=== PATIENT | male | born 1985 | race Caucasian/White ===

== ENCOUNTER 2016-12-05 10:33 | Emergency (ER) | payer OTHER ==
[~2016-12-05] VITALS: Ht 170.2 cm; Wt 83.7 kg
[~2016-12-05 10:33] MED LIST: METHADONE10 MG PO; PREDNISONE20 MG PO; VENTOLIN HFA18 GM IH
[2016-12-05 10:38] VITALS: BP 169/86
[2016-12-05] MEDS ORDERED: PEN-VEE K,VEET500 MG PO (12:42)
[2016-12-05] MEDS ORDERED: MOTRIN800 MG PO (12:42)
== END 2016-12-05 13:02 | disposition home or self-care (01) ==
LOC: EME 10:33
DX: R68.84 Jaw pain (principal); K02.9 Dental caries, unspecified; H53.149 Visual discomfort, unspecified; F17.200 Nicotine dependence, unspecified, uncomplicated
CPT/HCPCS: 70110; 99281; 99283; J1885

== ENCOUNTER 2017-03-10 08:11 | Emergency (ER) | payer OTHER ==
[~2017-03-10] VITALS: Ht 170.2 cm; Wt 83.6 kg
[~2017-03-10 08:11] MED LIST changes: +MOTRIN800 MG PO; +PEN-VEE K,VEET500 MG PO
[2017-03-10] MEDS ORDERED: PEN-VEE K,VEET500 MG PO (09:40)
[2017-03-10] MEDS ORDERED: ULTRAM50 MG PO (09:40)
[2017-03-10] MEDS ORDERED: NAPROXEN500 MG PO (09:41)
[2017-03-10 09:52] VITALS: BP 145/94
== END 2017-03-10 09:52 | disposition home or self-care (01) ==
LOC: EME 08:11
DX: K04.7 Periapical abscess without sinus (principal); K02.9 Dental caries, unspecified; H92.01 Otalgia, right ear
CPT/HCPCS: 99281; 99283

== ENCOUNTER 2017-09-17 07:02 | Inpatient (IN) | payer OTHER ==
[~2017-09-17] VITALS: Ht 152.4 cm; Wt 70.3 kg
[2017-09-17] VITALS (17 sets, daily range): BP systolic 67–140; BP diastolic 41–113
[~2017-09-17 07:02] MED LIST changes: +NAPROXEN500 MG PO; +ULTRAM50 MG PO
[2017-09-17 07:34] LABS: BASOPHIL (%) 0.4 % (0-1); EOSINOPHIL (%) 0.9 % (0-5); EOSINOPHIL COUNT 0.1 K/uL (0-0.3); HEMATOCRIT 43.3 % (38.0-50.0); HEMOGLOBIN 14.5 G/DL (12.5-16.6); IMMATURE GRANULOCYTE (%) 0.4 % (0.0-0.7); LYMPHOCYTE (%) 4.2 % (15-42); LYMPHOCYTE COUNT 0.2 K/uL (1.0-2.8); MCH 28.3 PG (29.0-34.0); MCHC 33.5 G/DL (30.0-36.0); MCV 84.6 FL (86-99); MONOCYTE (%) 0.4 % (3-12); NEUTROPHIL (%) 93.7 % (45-76); PLATELET COUNT 159 K/uL (156-360); RBC DIS.WIDTH-CV 12.1 % (11.8-14.6); RBC DIS.WIDTH-SD 37.2 % (39-53); RED BLOOD COUNT 5.12 M/uL (4.00-5.50); WHITE BLOOD COUNT 5.3 K/uL (4.1-10.2)
[2017-09-17 08:13] LABS: ALKALINE PHOSPHATASE 117 IU/L (3-129); ALT (GPT) 57 IU/L (3-49); AST (GOT) 162 IU/L (2-34); CHLORIDE 110 MEQ/L (99-109); CREATININE 1.7 MG/DL (0.6-1.3); GFR ESTIMATE (CALCULATED) 51 mL/min/ (58.99-99999); GLUCOSE 105 mg/dL (70-99); POTASSIUM 3.6 MEQ/L (3.7-5.4); SODIUM 144 MEQ/L (136-147); TOTAL BILIRUBIN 0.9 MG/DL (0.0-1.0); TOTAL PROTEIN 6.8 G/DL (6.4-8.3); UREA NITROGEN (BUN) 16 mg/dL (9-23)
[2017-09-17 10:59] LABS: SERUM ETHYL ALCOHOL < 10 mg/dL
[2017-09-17 11:55] LABS: COMMENTS - BLOOD GASES A+C+; DEVICE NC; O2 FLOW 4 L/MIN; SITE LR
[2017-09-17 11:58] LABS: PCO2 40 mm Hg (35-45); PO2 37 mm Hg (80-100); pH 7.35 (7.35-7.45)
[2017-09-17 11:59] LABS: BASE EXCESS -3.3 mEq/L (-3 to +3); BICARBONATE 22.1 mEq/L (22-26); CARBOXY HGB 1.6 % (0-5)
[2017-09-17 12:05] LABS: APPEARANCE CLEAR ((CLEAR)); BILIRUBIN NEGATIVE; BLOOD NEGATIVE; COLOR YELLOW ((YELLOW)); GLUCOSE (STRIP) NEGATIVE; KETONES 5; LEUKOCYTES NEGATIVE; NITRITE NEGATIVE; PROTEIN (STRIP) 30; SPECIFIC GRAVITY 1.016 (1.000-1.030)
[2017-09-17 12:13] LABS: COCAINE PRESUMPTIVE POSITIVE (150 ng/mL); PHENCYCLIDINE NEGATIVE (25 ng/mL); THC CANNABINOIDS NEGATIVE (50 ng/mL)
[2017-09-17 12:14] LABS: AMPHETAMINE NEGATIVE (500 ng/mL); BARBITURATES NEGATIVE (200 ng/mL); BENZODIAZEPINES PRESUMPTIVE POSITIVE (150 ng/mL); BUPRENORPHINE NEGATIVE (10 ng/mL); METHADONE NEGATIVE (200 ng/mL); METHAMPHETAMINE NEGATIVE (500 ng/mL); OPIATES (MORPHINE) PRESUMPTIVE POSITIVE (100 ng/mL); OXYCODONE NEGATIVE (100 ng/mL); PROPOXYPHENE NEGATIVE (300 ng/mL); TRICYCLIC ANTIDEPRESSANTS NEGATIVE (300 ng/mL)
[2017-09-17 12:40] LABS: COMMENTS - BLOOD GASES A+C+; DEVICE 840; FI02 40 %; MECHANICAL RATE 12 resp/min; MODE A/C; PEEP 8 CM/H20; SITE LR; TIDAL VOLUME 600 ML; TOTAL RESP RATE 12 resp/min
[2017-09-17 12:41] LABS: BASE EXCESS -4.5 mEq/L (-3 to +3); BICARBONATE 22.1 mEq/L (22-26); CARBOXY HGB 1.7 % (0-5); METHEMOGLOBIN 0.8 % (0-1.5); PCO2 46 mm Hg (35-45); PO2 72 mm Hg (80-100); pH 7.29 (7.35-7.45)
[2017-09-17 12:45] LABS: BENZODIAZEPINES, URINE SCREEN POSITIVE (200 ng/mL)
[2017-09-17 17:25] LABS: COMMENTS - BLOOD GASES C+; DEVICE 840; FI02 60 %; MECHANICAL RATE 10 resp/min; MODE A/C; PCO2 40 mm Hg (35-45); PEEP 5 CM/H20; PO2 129 mm Hg (80-100); SITE ALINE; TIDAL VOLUME 600 ML; TOTAL RESP RATE 10 resp/min
[2017-09-17 17:26] LABS: BICARBONATE 18.4 mEq/L (22-26); CARBOXY HGB 1.4 % (0-5); METHEMOGLOBIN 0.9 % (0-1.5); pH 7.27 (7.35-7.45)
[2017-09-17 18:29] LABS: PLATELET COUNT 164 K/uL (156-360)
[2017-09-17 18:40] LABS: INTER. NORMALIZED RATIO 1.3
[2017-09-17 18:43] LABS: PTT 28.1 SEC (25-37)
[2017-09-17 18:51] LABS: CHLORIDE 120 MEQ/L (99-109); CREATININE 1.3 MG/DL (0.6-1.3); GFR ESTIMATE (CALCULATED) > 59 mL/min/ (58.99-99999); GLUCOSE 128 mg/dL (70-99); SODIUM 144 MEQ/L (136-147); UREA NITROGEN (BUN) 19 mg/dL (9-23)
[2017-09-17 18:52] LABS: POTASSIUM 4.4 MEQ/L (3.7-5.4)
[2017-09-17 18:54] LABS: ABS NEUTROPHIL COUNT 32.7; ATYPICAL LYMPHOCYTE 0.4 %; BAND NEUTROPHILS 29.6 % (0-8.0); EOSINOPHIL ABS CT 0.1; EOSINOPHILS 0.4 % (0-5.0); HEMATOCRIT 40.3 % (38.0-50.0); LYMPHOCYTES 1.3 % (15.0-45.0); MCH 28.3 PG (29.0-34.0); MCHC 32.3 G/DL (30.0-36.0); MCV 87.6 FL (86-99); MONOCYTES 0.9 % (0-9.0); PLAT.SUFFICIENCY ADEQUATE; POIKILOCYTOSIS 1+; RBC DIS.WIDTH-CV 12.8 % (11.8-14.6); RBC DIS.WIDTH-SD 40.9 % (39-53); SEG.NEUTROPHILS 67.4 % (46.0-76.0); WHITE BLOOD COUNT 33.7 K/uL (4.1-10.2)
[2017-09-17 23:12] LABS: SITE LR ALINE
[2017-09-17 23:13] LABS: COMMENTS - BLOOD GASES C; DEVICE VENT; FI02 60 %; MECHANICAL RATE 10 resp/min; MODE AC; O2 SATURATION (CALCULATED) 96.6 % (95-99); PCO2 40 mm Hg (35-45); PEEP 5 CM/H20; PO2 133 mm Hg (80-100); TIDAL VOLUME 600 ML; TOTAL RESP RATE 17 resp/min
[2017-09-17 23:14] LABS: BASE EXCESS -6.3 mEq/L (-3 to +3); BICARBONATE 19.7 mEq/L (22-26); CARBOXY HGB 1.4 % (0-5); METHEMOGLOBIN 1.3 % (0-1.5)
[2017-09-18] VITALS (11 sets, daily range): BP systolic 91–140; BP diastolic 53–96
[2017-09-18 05:32] LABS: PLATELET COUNT 129 K/uL (156-360)
[2017-09-18 06:26] LABS: ALBUMIN 3.1 G/DL (3.2-4.8); ALKALINE PHOSPHATASE 90 IU/L (3-129); ALT (GPT) 86 IU/L (3-49); CHLORIDE 116 MEQ/L (99-109); GFR ESTIMATE (CALCULATED) > 59 mL/min/ (58.99-99999); GLUCOSE 100 mg/dL (70-99); POTASSIUM 4.7 MEQ/L (3.7-5.4); SODIUM 146 MEQ/L (136-147); UREA NITROGEN (BUN) 24 mg/dL (9-23)
[2017-09-18 06:29] LABS: HEMATOCRIT 37.8 % (38.0-50.0); HEMOGLOBIN 12.3 G/DL (12.5-16.6); MCH 28.3 PG (29.0-34.0); MCHC 32.5 G/DL (30.0-36.0); MCV 86.9 FL (86-99); RBC DIS.WIDTH-CV 12.9 % (11.8-14.6); RBC DIS.WIDTH-SD 40.9 % (39-53); RED BLOOD COUNT 4.35 M/uL (4.00-5.50)
[2017-09-18 06:30] LABS: AST (GOT) 65 IU/L (2-34); TOTAL BILIRUBIN 0.7 MG/DL (0.0-1.0); WHITE BLOOD COUNT 35.8 K/uL (4.1-10.2)
[2017-09-18 07:15] LABS: ABS NEUTROPHIL COUNT 34.3; BAND NEUTROPHILS 18.3 % (0-8.0); EOSINOPHIL ABS CT 0; LYMPHOCYTES 1.7 % (15.0-45.0); METAMYELOCYTES 0.9 %; MONOCYTES 1.3 % (0-9.0); MYELOCYTES 0.4 %; PLAT.SUFFICIENCY DECREASED; SEG.NEUTROPHILS 77.4 % (46.0-76.0)
[2017-09-18 10:39] LABS: HIGH-SENS C-REACTIVE PROTEIN > 8.00 MG/DL (0.02-0.20)
[2017-09-18 11:31] LABS: THYROTROPIN (TSH) 0.15 MIU/L (0.4-5.5)
[2017-09-18 12:14] LABS: HEPATITIS B SURFACE ANTIGEN Nonreactive
[2017-09-18 12:15] LABS: ANTI-HEPATITIS A VIRUS (IGM) Nonreactive; HEPATITIS C ANTIBODY Nonreactive
[2017-09-18 12:16] LABS: ANTI-HEPATITIS B CORE (IGM) Nonreactive
[2017-09-18 12:17] LABS: HIV-1/2 AB/AG COMBO Nonreactive
[2017-09-19] VITALS (13 sets, daily range): BP systolic 100–129; BP diastolic 61–101
[2017-09-19 05:12] LABS: BASOPHIL (%) 0.1 % (0-1); EOSINOPHIL (%) 0.7 % (0-5); EOSINOPHIL COUNT 0.1 K/uL (0-0.3); HEMATOCRIT 33.5 % (38.0-50.0); HEMOGLOBIN 10.7 G/DL (12.5-16.6); IMMATURE GRANULOCYTE (%) 1.6 % (0.0-0.7); LYMPHOCYTE (%) 9.5 % (15-42); LYMPHOCYTE COUNT 1.5 K/uL (1.0-2.8); MCH 27.6 PG (29.0-34.0); MCHC 31.9 G/DL (30.0-36.0); MCV 86.3 FL (86-99); MONOCYTE (%) 4.9 % (3-12); MONOCYTE COUNT 0.8 K/uL (0-0.8); NEUTROPHIL (%) 83.2 % (45-76); NEUTROPHIL COUNT 13.3 K/uL (1.8-6.4); PLATELET COUNT 94 K/uL (156-360); RBC DIS.WIDTH-CV 12.9 % (11.8-14.6); RBC DIS.WIDTH-SD 40.6 % (39-53); RED BLOOD COUNT 3.88 M/uL (4.00-5.50)
[2017-09-19 06:01] LABS: PHOSPHORUS 2.5 mg/dL (2.5-4.9)
[2017-09-19 06:04] LABS: ALBUMIN 2.8 G/DL (3.2-4.8); ALKALINE PHOSPHATASE 63 IU/L (3-129); ALT (GPT) 53 IU/L (3-49); CHLORIDE 113 MEQ/L (99-109); CREATININE 0.8 MG/DL (0.6-1.3); GFR ESTIMATE (CALCULATED) > 59 mL/min/ (58.99-99999); GLUCOSE 93 mg/dL (70-99); SODIUM 146 MEQ/L (136-147); UREA NITROGEN (BUN) 15 mg/dL (9-23)
[2017-09-19 06:06] LABS: HIGH-SENS C-REACTIVE PROTEIN > 8.00 MG/DL (0.02-0.20)
[2017-09-19 06:10] LABS: AST (GOT) 24 IU/L (2-34); POTASSIUM 3.5 MEQ/L (3.7-5.4); TOTAL BILIRUBIN 0.4 MG/DL (0.0-1.0)
[2017-09-20] VITALS (14 sets, daily range): BP systolic 122–194; BP diastolic 67–130
[2017-09-20 05:16] LABS: BASOPHIL (%) 0.2 % (0-1); EOSINOPHIL (%) 0.3 % (0-5); IMMATURE GRANULOCYTE (%) 0.8 % (0.0-0.7); LYMPHOCYTE (%) 8.7 % (15-42); LYMPHOCYTE COUNT 0.9 K/uL (1.0-2.8); MCH 28.8 PG (29.0-34.0); MCHC 33.7 G/DL (30.0-36.0); MCV 85.6 FL (86-99); MONOCYTE (%) 5.3 % (3-12); MONOCYTE COUNT 0.5 K/uL (0-0.8); NEUTROPHIL (%) 84.7 % (45-76); NEUTROPHIL COUNT 8.2 K/uL (1.8-6.4); RBC DIS.WIDTH-CV 12.3 % (11.8-14.6); RBC DIS.WIDTH-SD 38.3 % (39-53); RED BLOOD COUNT 4.44 M/uL (4.00-5.50); WHITE BLOOD COUNT 9.7 K/uL (4.1-10.2)
[2017-09-20 05:33] LABS: ALBUMIN 3.2 g/dL (3.2-4.8); CHLORIDE 112 mEq/L (99-109); POTASSIUM 3.8 mEq/L (3.7-5.4); SODIUM 152 mEq/L (136-147)
[2017-09-20 05:34] LABS: MAGNESIUM 2.2 mg/dL (1.3-2.7)
[2017-09-20 05:35] LABS: GLUCOSE 107 mg/dL (70-99)
[2017-09-20 05:36] LABS: TOTAL PROTEIN 5.6 g/dL (6.4-8.3)
[2017-09-20 05:37] LABS: TOTAL BILIRUBIN 0.5 mg/dL (0.0-1.0)
[2017-09-20 05:39] LABS: ALKALINE PHOSPHATASE 72 IU/L (3-129); CREATININE 1.1 mg/dL (0.6-1.3); GFR ESTIMATE (CALCULATED) > 59 mL/min/ (58.99-99999)
[2017-09-20 05:40] LABS: UREA NITROGEN (BUN) 10 mg/dL (9-23)
[2017-09-20 05:41] LABS: AST (GOT) 46 IU/L (2-34)
[2017-09-20 05:42] LABS: ALT (GPT) 55 IU/L (3-49)
[2017-09-20 06:39] LABS: HEMOGLOBIN 12.8 G/DL (12.5-16.6)
[2017-09-20 07:16] LABS: PLAT.SUFFICIENCY DECREASED
[2017-09-20 07:30] LABS: PLATELET COUNT 60 K/uL (156-360)
[2017-09-20 23:23] LABS: COMMENTS - BLOOD GASES C+; DEVICE NRBM; O2 FLOW 15 L/MIN; SITE LR; pH 7.52 (7.35-7.45)
[2017-09-20 23:24] LABS: BASE EXCESS 7.7 mEq/L (-3 to +3); CARBOXY HGB 1.4 % (0-5); METHEMOGLOBIN 0.9 % (0-1.5); O2 SATURATION (CALCULATED) 95.6 % (95-99); PCO2 38 mm Hg (35-45); PO2 67 mm Hg (80-100)
[2017-09-21] VITALS (16 sets, daily range): BP systolic 126–176; BP diastolic 79–115
[2017-09-21 05:32] LABS: BASOPHIL (%) 0.4 % (0-1); EOSINOPHIL (%) 0.1 % (0-5); HEMATOCRIT 38.5 % (38.0-50.0); HEMOGLOBIN 12.6 G/DL (12.5-16.6); IMMATURE GRANULOCYTE (%) 1.3 % (0.0-0.7); LYMPHOCYTE (%) 8.8 % (15-42); LYMPHOCYTE COUNT 0.7 K/uL (1.0-2.8); MCH 27.5 PG (29.0-34.0); MCHC 32.7 G/DL (30.0-36.0); MCV 84.1 FL (86-99); MONOCYTE (%) 5.8 % (3-12); MONOCYTE COUNT 0.5 K/uL (0-0.8); NEUTROPHIL (%) 83.6 % (45-76); RBC DIS.WIDTH-CV 12.3 % (11.8-14.6); RBC DIS.WIDTH-SD 37.5 % (39-53); RED BLOOD COUNT 4.58 M/uL (4.00-5.50); WHITE BLOOD COUNT 8.4 K/uL (4.1-10.2)
[2017-09-21 05:36] LABS: PLATELET COUNT 99 K/uL (156-360)
[2017-09-21 06:02] LABS: ALBUMIN 3.3 G/DL (3.2-4.8); ALKALINE PHOSPHATASE 65 IU/L (3-129); ALT (GPT) 37 IU/L (3-49); AST (GOT) 29 IU/L (2-34); CHLORIDE 112 MEQ/L (99-109); CREATININE 0.9 MG/DL (0.6-1.3); GFR ESTIMATE (CALCULATED) > 59 mL/min/ (58.99-99999); GLUCOSE 89 mg/dL (70-99); MAGNESIUM 1.9 mg/dl (1.3-2.7); POTASSIUM 3.3 MEQ/L (3.7-5.4); SODIUM 153 MEQ/L (136-147); UREA NITROGEN (BUN) 8 mg/dL (9-23)
[2017-09-21 06:23] LABS: PHOSPHORUS 4.6 mg/dL (2.5-4.9); TOTAL BILIRUBIN 0.7 MG/DL (0.0-1.0)
[2017-09-21 11:20] LABS: CREATINE KINASE 118 IU/L (1-294); HIGH-SENS C-REACTIVE PROTEIN 4.72 MG/DL (0.02-0.20)
[2017-09-21 21:09] LABS: Heparin Induced Plt Ab Negative (Negative)
[2017-09-22] VITALS (15 sets, daily range): BP systolic 128–160; BP diastolic 58–96
[2017-09-22 05:02] LABS: BASOPHIL (%) 0.3 % (0-1); EOSINOPHIL (%) 0.2 % (0-5); HEMATOCRIT 35.6 % (38.0-50.0); IMMATURE GRANULOCYTE (%) 1.6 % (0.0-0.7); LYMPHOCYTE (%) 14.7 % (15-42); LYMPHOCYTE COUNT 0.9 K/uL (1.0-2.8); MCH 28.2 PG (29.0-34.0); MCHC 33.7 G/DL (30.0-36.0); MCV 83.6 FL (86-99); MONOCYTE (%) 9.8 % (3-12); MONOCYTE COUNT 0.6 K/uL (0-0.8); NEUTROPHIL (%) 73.4 % (45-76); NEUTROPHIL COUNT 4.6 K/uL (1.8-6.4); PLATELET COUNT 102 K/uL (156-360); RBC DIS.WIDTH-CV 12.4 % (11.8-14.6); RBC DIS.WIDTH-SD 37.7 % (39-53); RED BLOOD COUNT 4.26 M/uL (4.00-5.50); WHITE BLOOD COUNT 6.3 K/uL (4.1-10.2)
[2017-09-22 05:19] LABS: CHLORIDE 116 mEq/L (99-109)
[2017-09-22 05:20] LABS: ALBUMIN 3.4 g/dL (3.2-4.8); MAGNESIUM 1.9 mg/dL (1.3-2.7); POTASSIUM 3.4 mEq/L (3.7-5.4); SODIUM 149 mEq/L (136-147)
[2017-09-22 05:22] LABS: GLUCOSE 102 mg/dL (70-99); TOTAL PROTEIN 5.5 g/dL (6.4-8.3)
[2017-09-22 05:24] LABS: TOTAL BILIRUBIN 1.2 mg/dL (0.0-1.0)
[2017-09-22 05:25] LABS: PHOSPHORUS 3.6 mg/dL (2.5-4.9)
[2017-09-22 05:26] LABS: ALKALINE PHOSPHATASE 68 IU/L (3-129); CREATININE 0.8 mg/dL (0.6-1.3); GFR ESTIMATE (CALCULATED) > 59 mL/min/ (58.99-99999)
[2017-09-22 05:27] LABS: UREA NITROGEN (BUN) 9 mg/dL (9-23)
[2017-09-22 05:28] LABS: AST (GOT) 24 IU/L (2-34)
[2017-09-22 05:29] LABS: ALT (GPT) 36 IU/L (3-49)
[2017-09-22 16:41] LABS: UFH SRA Result Negative (Negative)
[2017-09-23 04:15] VITALS: BP 137/83
[2017-09-23 05:57] LABS: BASOPHIL (%) 0.6 % (0-1); EOSINOPHIL (%) 0 % (0-5); HEMATOCRIT 35.4 % (38.0-50.0); HEMOGLOBIN 11.7 G/DL (12.5-16.6); IMMATURE GRANULOCYTE (%) 3.7 % (0.0-0.7); LYMPHOCYTE (%) 13.4 % (15-42); LYMPHOCYTE COUNT 0.9 K/uL (1.0-2.8); MCH 27.2 PG (29.0-34.0); MCHC 33.1 G/DL (30.0-36.0); MCV 82.3 FL (86-99); MONOCYTE (%) 11.6 % (3-12); MONOCYTE COUNT 0.8 K/uL (0-0.8); NEUTROPHIL (%) 70.7 % (45-76); NEUTROPHIL COUNT 4.7 K/uL (1.8-6.4); PLATELET COUNT 128 K/uL (156-360); RBC DIS.WIDTH-CV 12.3 % (11.8-14.6); RBC DIS.WIDTH-SD 37.2 % (39-53); WHITE BLOOD COUNT 6.7 K/uL (4.1-10.2)
[2017-09-23 06:20] LABS: ALBUMIN 3.7 G/DL (3.2-4.8); ALKALINE PHOSPHATASE 58 IU/L (3-129); ALT (GPT) 47 IU/L (3-49); CHLORIDE 111 MEQ/L (99-109); CREATININE 0.7 MG/DL (0.6-1.3); GFR ESTIMATE (CALCULATED) > 59 mL/min/ (58.99-99999); GLUCOSE 102 mg/dL (70-99); PHOSPHORUS 4.1 mg/dL (2.5-4.9); POTASSIUM 3.3 MEQ/L (3.7-5.4); SODIUM 148 MEQ/L (136-147); TOTAL PROTEIN 5.9 G/DL (6.4-8.3); UREA NITROGEN (BUN) 15 mg/dL (9-23)
[2017-09-23 06:26] LABS: AST (GOT) 48 IU/L (2-34); TOTAL BILIRUBIN 1.2 MG/DL (0.0-1.0)
[2017-09-23 07:40] VITALS: BP 153/82
[2017-09-23 11:44] VITALS: BP 123/65
[2017-09-23] MEDS ORDERED: FOLBEE PLUS TABL5 MG PO (17:27)
[2017-09-23] MEDS ORDERED: THERAGRAN1 TABLET PO (17:27)
[2017-09-23] MEDS ORDERED: AUGMENTIN875 MG PO (17:28)
[2017-09-23] MEDS ORDERED: THIAMINE HCL100 MG PO (17:28)
[2017-09-23] MEDS ORDERED: TORADOL10 MG PO (17:29)
[2017-09-23 17:41] VITALS: BP 142/72
== END 2017-09-23 19:56 | disposition home or self-care (01) | DRG 871 ==
LOC: EME 07:02 → EDOF 10:03 → 4WEST 10:03 → ENRESERV 10:04 → CANRESERV 10:04 → EDOF 10:48 → ENRESERV 10:49 → 4WEST 11:31 → ENRESERV 09-22 11:53 → 4EAST 09-22 14:02
PROVIDERS: Emergency Medicine; Internal Medicine; Internal Medicine Critical Care Medicine; Obstetrics & Gynecology; Surgery
PROC: 5A1945Z Respiratory Ventilation, 24-96 Consecutive Hours (ICD-10-PCS; principal; 2017-09-17)
PROC: 0BH17EZ Insertion of Endotracheal Airway into Trachea, Via Natural or Artificial Opening (ICD-10-PCS; principal; 2017-09-17)
PROC: 02HV33Z Insertion of Infusion Device into Superior Vena Cava, Percutaneous Approach (ICD-10-PCS; principal; 2017-09-17)
PROC: 0F9430Z Drainage of Gallbladder with Drainage Device, Percutaneous Approach (ICD-10-PCS; 2017-09-18)
DX: A41.9 Sepsis, unspecified organism (principal); J96.02 Acute respiratory failure with hypercapnia; J96.01 Acute respiratory failure with hypoxia; K81.0 Acute cholecystitis; R65.21 Severe sepsis with septic shock; F11.20 Opioid dependence, uncomplicated; F14.20 Cocaine dependence, uncomplicated; G93.40 Encephalopathy, unspecified; E87.2 Acidosis; D69.6 Thrombocytopenia, unspecified; E87.0 Hyperosmolality and hypernatremia; I80.8 Phlebitis and thrombophlebitis of other sites; L03.114 Cellulitis of left upper limb; L03.113 Cellulitis of right upper limb; Z78.1 Physical restraint status
CPT/HCPCS: 36600; 49405; 70450; 71045; 71250; 74176; 76705; 80048 91; 80053; 80074; 81003; 82533 91; 82550; 82803; 83605; 83735; 84100; 84145 90; 84439; 84443; 84999; 85025; 85025 91; 85610; 85730; 86022 90; 86141; 87040; 87070; 87075; 87086; 87205; 87389; 87493; 87641; 93005; 93306; 93970; 94002; 94003; 94640; 94640 76; 94760; 94799; 96125 GN; 99202; 99281; 99285; C1729; C1751; C1769; G0480; G0515 GN; J0360; J1644; J1650; J1885; J1940; J2060; J2250; J2310; J2405; J2543; J2704; J3010; J3370; J3480; J7030; J7050; J7070; P9045; Q0177

== ENCOUNTER → 2017-10-30 | Outpatient (CLI) | payer OTHER ==
[~2017-10-30] MED LIST changes: +AUGMENTIN875 MG PO; +FOLBEE PLUS TABL5 MG PO; +THERAGRAN1 TABLET PO; +THIAMINE HCL100 MG PO; +TORADOL10 MG PO
== END | disposition home or self-care (01) ==
LOC: RAD 08:30
DX: K81.0 Acute cholecystitis (principal)
CPT/HCPCS: 76000